=== PATIENT | male | born 1975 | race Caucasian/White ===

== ENCOUNTER 2022-11-07 06:50 | Day surgery (SDC) | payer OTHER ==
[~2022-11-07] VITALS: Ht 195.6 cm; Wt 91.0 kg
[2022-11-07] VITALS (231 sets, daily range): BP systolic 83–129; BP diastolic 44–87
[2022-11-07 08:14] LABS: BASO% 0.5 % (0-3); EOS% 7.6 % (0-8); HEMATOCRIT 34.4 % (39.0-50.0); HEMOGLOBIN 11.6 g/dl (14.0-18.0); IMMATURE GRANULOCYTES 0.5 % (0.0-5.0); LYMPH% 23.9 % (15-41); MEAN CELL VOLUME 90.3 fL CALC (80.0-100.0); MEAN CORPUSCULAR HGB 30.4 pG CALC (26.0-32.0); MEAN CORPUSCULAR HGB CONC 33.7 g/dL CAL (32.0-36.0); MONO% 7.6 % (2-13); NEUT# 5.16 thou/uL (1.82-7.42); NEUT% 59.9 % (42-76); RED BLOOD COUNT 3.81 mill/uL (4.70-6.10); RED CELL DISTRI WIDTH 12.3 % (11.5-15.5)
[2022-11-07 08:36] LABS: ALBUMIN 4.2 g/dL (3.2-5.0); ALKALINE PHOSPHATASE 38 u/l (38-126); ANION GAP 10 (6-22 (CALC)); BILIRUBIN, TOTAL 0.3 mg/dL (0.2-1.3); BUN 15 mg/dL (9-20); BUN/CREATININE RATIO 22 (12-20 (CALC)); CARBON DIOXIDE 30 mmol/l (22-30); CHLORIDE 103 mmol/l (95-108); CREATININE 0.7 mg/dL (0.7-1.3); GFR FOR AFR.AMER. > 60 ML/MIN (>=60 (CALC)); GFR OTHER RACES > 60 ML/MIN (>=60 (CALC)); POTASSIUM 3.4 mmol/l (3.5-5.1); SGOT/AST 36 u/l (17-59); SODIUM 140 mmol/l (137-146); TOTAL PROTEIN 6.7 g/dL (6.3-8.2)
[2022-11-07] MEDS ORDERED: NALTREXONE50 MG PO (16:00)
[2022-11-07] MEDS ORDERED: KLONOPIN2 MG PO (16:01)
[2022-11-07] MEDS ORDERED: CLONIDINE0.1 MG PO (16:01)
[2022-11-08 03:24] VITALS: BP 123/70
[2022-11-08 05:51] LABS: BASO% 0.1 % (0-3); HEMATOCRIT 32.6 % (39.0-50.0); HEMOGLOBIN 11.1 g/dl (14.0-18.0); IMMATURE GRANULOCYTES 0.1 % (0.0-5.0); LYMPH% 9.9 % (15-41); MEAN CELL VOLUME 89.3 fL CALC (80.0-100.0); MEAN CORPUSCULAR HGB 30.4 pG CALC (26.0-32.0); MONO% 5.3 % (2-13); NEUT# 6.87 thou/uL (1.82-7.42); NEUT% 84.6 % (42-76); RED BLOOD COUNT 3.65 mill/uL (4.70-6.10); RED CELL DISTRI WIDTH 12.2 % (11.5-15.5)
[2022-11-08 06:13] LABS: ALBUMIN 3.5 g/dL (3.2-5.0); ALKALINE PHOSPHATASE 34 u/l (38-126); ANION GAP 9 (6-22 (CALC)); BILIRUBIN, TOTAL 0.4 mg/dL (0.2-1.3); BUN 11 mg/dL (9-20); BUN/CREATININE RATIO 19 (12-20 (CALC)); CARBON DIOXIDE 28 mmol/l (22-30); CHLORIDE 107 mmol/l (95-108); CREATININE 0.6 mg/dL (0.7-1.3); GFR FOR AFR.AMER. > 60 ML/MIN (>=60 (CALC)); GFR OTHER RACES > 60 ML/MIN (>=60 (CALC)); MAGNESIUM 2.3 mg/dL (1.6-2.3); POTASSIUM 3.5 mmol/l (3.5-5.1); SGOT/AST 30 u/l (17-59); SODIUM 140 mmol/l (137-146); TOTAL PROTEIN 5.9 g/dL (6.3-8.2)
[2022-11-08 07:00] VITALS: BP 117/64
== END 2022-11-08 16:29 | disposition left against medical advice (07) | DRG 894 ==
LOC: ANR 06:50 → MS2 07:23 → ANR 11-08 16:29 → MS2 11-08 16:29
PROVIDERS: ATTEND Anesthesiology Critical Care Medicine
DX: F11.20 Opioid dependence, uncomplicated (principal)
CPT/HCPCS: J2060; J2354; J3475